=== PATIENT | male | born 1975 | race Caucasian/White ===

== ENCOUNTER 2024-11-13 15:51 | Outpatient (AMB) | payer OTHER, SELFPAY ==
--- NOTE | 2024-11-13 15:51 | MHC.OFFVIS ---
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 Physical Exam Exam Exam: /130/L5 4+/5 EC + O'valentino's Assessment & Plan Assessment & Plan (1) Internal derangement of right shoulder: Code(s): M24.811 - Other specific joint derangements of right shoulder, not elsewhere classified Category: Medical Plan: Right shoulder has not responded to activity modification. Injection, PT and MRI ordered. Coding Level of Care Code New Pt Level 3 (71164) Diagnoses Internal derangement of right shoulder M24.811
--- OUTSIDE RECORDS SUMMARY | 2024-11-13 17:58 | XMS_ITS | Clinical Summary ---
Author Organization [facility] Address [address] [place] [phone] Phone Care Team Providers Care Business Proposal Rep Name Role Phone No Assignment, Pt Requests Primary Care Provider Unavailable Allergies Active Allergy Reactions Criticality Noted Date Comments Phenobarbital Hives High 08/30/2018 Medications rosuvastatin (CRESTOR) 20 mg tablet Take 20 mg by mouth. Active fluticasone (FLONASE) 50 mcg/actuation nasal sprayIndication s:Nasal congestion Inhale 2 sprays in each nostril once daily. 16 gram 04/30/2023 1:16 PM MDT 04/30/2023 Active Active Problems No known active problems Social History Tobacco Use Types Packs/Day Years Used Date Smoking Tobacco: Never Smokeless Tobacco: Never Tobacco Cessation:Counseling Given: Not Answered Alcohol Use Standard Drinks/Week Comments Yes 0 (1 standard drink = 0.6 oz pur e alcohol) socially History of Abuse Answer Date Recorded Have you ever been afraid of , threatened, neglected, or abused by someone? No 06/12/2023 Sex and Gender Information Value Date Recorded Sex Assigned at Not on file Legal Sex Male 12:37 PM MDT Gender Identity Not on file Sexual Orientation Not on file Last Filed Vital Signs Vital Sign Reading Time Taken Comments Blood Pressure 134/113 06/12/2023 11:00 PM MDT Pulse 66 06/12/2023 11:00 PM MDT Temperature 36.6 C (97.9 F) 06/12/2023 11:00 PM MDT Respiratory Rate 19 06/12/2023 11:00 PM MDT Oxygen Saturation 94% 06/12/2023 11:00 PM MDT Inhaled Oxygen Concentration - - Weight 86.2 kg (190 lb) 06/12/2023 6:48 PM MDT Height - - Body Mass Index - - Plan of Treatment Health Maintenance Due Date Last Done Comments HIV Screening-All Pts 15-65 Regardless of Risk 974 Hep C Screening-All Pts 18-79 Regardless of Risk 09/23 Depression Screening/Monitoring 1985 Annual FIT Testing 2018 Colonoscopy 2018 Colorectal Cancer Screening 2018 FIT-DNA Testing (Cologuard) 2018 Pneumococcal Vaccine: 50+ Years (1 of 1 - PCV) 024 Shingrix Vaccine (1 of 2) 09/24/2023 Influenza Vaccine (#1) 2024 Lipid Disorder Screening 02/23/2028 02/22/2023 DTaP/Tdap/TD Vaccine (2 - Td or Tdap) 10/16/2029 Insurance [address] [place] [id number] [address] [id number] [facility] [place] [address] Care Teams Business Proposal Rep Relationship Specialty Start Date End Date No Assignment, Pt Requests [address] [place] [address] PCP - General 04/30/23
== END 2024-11-13 15:52 | disposition home or self-care (01) ==
LOC: HO.HOS 15:51
PROVIDERS: Visit Provider Orthopaedic Surgery
DX: M24.811 Other specific joint derangements of right shoulder, not elsewhere classified (principal)
CPT/HCPCS: 99203

== ENCOUNTER → 2024-12-25 19:28 | Outpatient (BNV) | payer OTHER, SELFPAY | PROVIDERS: Visit Provider Radiology Diagnostic Radiology | DX: M75.121 Complete rotator cuff tear or rupture of right shoulder, not specified as traumatic (principal); M75.51 Bursitis of right shoulder; M25.411 Effusion, right shoulder | CPT/HCPCS: 73221 ==

== ENCOUNTER 2024-12-25 19:31 | Outpatient (REF) | payer OTHER, SELFPAY ==
--- NOTE | ~2024-12-25 | MR_ITS ---
CLINICAL HISTORY: M25.311 - Other instability, right shoulder MR right shoulder without gadolinium Comparison: None provided Findings: No acute fracture or pathologic bone lesion. No significant degenerative changes. Type II acromion without downsloping. Absence of the anterior superior labrum with thickening of the MGHL; Renetta complex. Fluid in the subscapular recess. Rim rent tear of the supraspinatus. Subchondral geode of the humeral head at the level of the insertion of the supraspinatus, 0.6 cm. The long head of biceps is intact. Glenoid labrum is intact. Small amount of fluid in subacromial/subdeltoid bursa. Small joint effusion. IMPRESSION: 1. Rim rent tear supraspinatus. 2. Subacromial/subdeltoid bursitis. 3. Small joint effusion. This document has been electronically signed by: Alvin Draper MD on 12/25/2024 20:39:15
--- OUTSIDE RECORDS SUMMARY | 2024-12-25 19:33 | XMS_ITS | Clinical Summary ---
Author Organization [facility] Address [address] [place] [phone] Phone Care Team Providers Care Gymnastics Instructor Name Role Phone No Assignment, Pt Requests [...] Years (1 of 1 - PCV) 024 RSV Vaccine Age 75+ or At [facility] (1 - Risk 50-74 years 1-dose series) 09/24/2023 Shingrix Vaccine (1 of 2) 09/24/2023 Influenza Vaccine (#1) 2024 Lipid Disorder Screening 02/23/2028 02/22/2023 DTaP/Tdap/TD Vaccine (2 - Td or Tdap) 10/16/2029 Insurance [address] [id number] [facility] [address] [id number] [facility] Care Teams Gymnastics Instructor Relationship Specialty Start Date End Date No Assignment, Pt Requests [address] [place] [address] PCP - General 04/30/23
== END 2024-12-25 19:32 | disposition home or self-care (01) ==
LOC: HO.MRI 19:31
PROVIDERS: Visit Provider Orthopaedic Surgery
DX: M25.311 Other instability, right shoulder (principal)
CPT/HCPCS: 73221